=== PATIENT | male | born 1970 | race Hispanic/Latino ===

== ENCOUNTER 2017-05-06 11:22 | Emergency (ER) | payer SELFPAY ==
[2017-05-06] MEDS ORDERED: Adacel (T-DAP) 0.5 ML VIAL ONE (11:48)
[2017-05-06] MEDS ORDERED: Lidocaine 1% PF 5 ML VIAL ONE (11:49)
[2017-05-06] MEDS ORDERED: Lidocaine 1% w/Epinephrine 1:100K 20 ML VIAL ONE (11:51)
--- NOTE | 2017-05-06 13:45 | RAD ---
PA AND LATERAL CHEST TWO VIEWS: History: Trauma. Chest pain. FINDINGS: The heart size is normal. The lungs are expanded without confluent areas of consolidation, pneumothor ax, or pleural effusions. No acute osseous abnormality was seen. IMPRESSION: No evidence of acute cardiopulmonary process. POS: [facility]
== END 2017-05-06 14:30 | disposition home or self-care (01) ==
LOC: ERS 11:22
DX: S21.112A Laceration without foreign body of left front wall of thorax without penetration into thoracic cavity, initial encounter (principal); E11.9 Type 2 diabetes mellitus without complications; Z79.84 Long term (current) use of oral hypoglycemic drugs; W27.0XXA Contact with workbench tool, initial encounter; Y92.009 Unspecified place in unspecified non-institutional (private) residence as the place of occurrence of the external cause
CPT/HCPCS: 12002; 71046; 90471; 90715; J2001